=== PATIENT | female | born 1945 | race Hispanic/Latino ===

== ENCOUNTER 2019-03-06 14:01 | Emergency (ER) | payer OTHER ==
[2019-03-06] MEDS ORDERED: KETOROLAC TROMETHAMINE 15MG/ML ONE (14:23)
== END 2019-03-06 16:24 | disposition home or self-care (01) ==
LOC: EDH 14:01
DX: S20.211A Contusion of right front wall of thorax, initial encounter (principal); V49.40XA Driver injured in collision with unspecified motor vehicles in traffic accident, initial encounter; Y93.89 Activity, other specified; Y92.89 Other specified places as the place of occurrence of the external cause; Y99.8 Other external cause status
CPT/HCPCS: 71250; 93005; 96374; 99284; J1885